=== PATIENT | male | born 1965 | race Caucasian/White ===

== ENCOUNTER → 2019-12-08 09:04 | Outpatient (BNVA) | payer MEDICAID, SELFPAY | PROVIDERS: Family Provider Nurse Practitioner; PCP Nurse Practitioner; Visit Provider Social Worker Clinical | DX: F43.12 Post-traumatic stress disorder, chronic (principal); F20.9 Schizophrenia, unspecified; F60.2 Antisocial personality disorder | CPT/HCPCS: 90834 ==

== ENCOUNTER → 2019-12-26 14:23 | Outpatient (BNVA) | payer MEDICAID, SELFPAY | PROVIDERS: Family Provider Nurse Practitioner; PCP Nurse Practitioner; Visit Provider Nurse Practitioner | DX: R10.84 Generalized abdominal pain (principal); F17.200 Nicotine dependence, unspecified, uncomplicated; R16.0 Hepatomegaly, not elsewhere classified | CPT/HCPCS: 71046; 74018; 81003 ==

== ENCOUNTER → 2019-12-27 11:39 | Outpatient (BNVA) | payer MEDICAID, SELFPAY | PROVIDERS: Family Provider Nurse Practitioner; PCP Nurse Practitioner; Visit Provider Social Worker Clinical | DX: F43.12 Post-traumatic stress disorder, chronic (principal); F60.2 Antisocial personality disorder; F20.9 Schizophrenia, unspecified | CPT/HCPCS: 90834 ==

== ENCOUNTER → 2020-01-03 13:29 | Outpatient (BNVA) | payer MEDICAID, SELFPAY | PROVIDERS: Family Provider Nurse Practitioner; PCP Nurse Practitioner; Visit Provider Nurse Practitioner | DX: J43.9 Emphysema, unspecified (principal); R16.0 Hepatomegaly, not elsewhere classified; R10.84 Generalized abdominal pain; F17.200 Nicotine dependence, unspecified, uncomplicated | CPT/HCPCS: 71046; 74018 ==

== ENCOUNTER → 2020-01-16 10:37 | Outpatient (BNVA) | payer MEDICAID, SELFPAY | PROVIDERS: Family Provider Nurse Practitioner; PCP Nurse Practitioner; Visit Provider Nurse Practitioner Psychiatric/Mental Health | DX: F20.0 Paranoid schizophrenia (principal); F43.12 Post-traumatic stress disorder, chronic; F60.2 Antisocial personality disorder; F17.210 Nicotine dependence, cigarettes, uncomplicated; Z03.89 Encounter for observation for other suspected diseases and conditions ruled out | CPT/HCPCS: 99214 ==

== ENCOUNTER → 2020-01-18 10:23 | Outpatient (BNVA) | payer MEDICAID, SELFPAY | PROVIDERS: Family Provider Nurse Practitioner; PCP Nurse Practitioner; Visit Provider Social Worker Clinical | DX: F60.2 Antisocial personality disorder (principal); F43.12 Post-traumatic stress disorder, chronic; F20.0 Paranoid schizophrenia | CPT/HCPCS: 90832; 80053; 80061; 81003; 83036; 85025 ==

== ENCOUNTER → 2020-02-08 10:06 | Outpatient (BNVA) | payer MEDICAID, SELFPAY | PROVIDERS: Family Provider Nurse Practitioner; PCP Nurse Practitioner; Visit Provider Social Worker Clinical | DX: F43.12 Post-traumatic stress disorder, chronic (principal); F60.2 Antisocial personality disorder; F20.0 Paranoid schizophrenia | CPT/HCPCS: 90834 ==

== ENCOUNTER 2020-02-19 08:11 | Outpatient (CLI) | payer MEDICAID, SELFPAY ==
--- NOTE | 2020-02-19 | US_ITS ---
WS: [id number] RIGHT UPPER QUADRANT ULTRASOUND HISTORY: ELEVATED LIVER ENZYMES COMPARISON: None available. Liver: 17.4 cm in length. Normal size and echogenicity with no intrahepatic dilatation. No mass. Gallbladder: Normally distended gallbladder with no stones or wall thickening. CBD: 0.4 cm Pancreas: Poorly visualized. Right kidney: 10.1 cm in length. Normal echogenicity with no mass or hydronephrosis. Aorta and IVC: Unremarkable. No ascites. US/US liver [id number] IMPRESSION: 1. Normal liver. 2. No bile duct dilatation. 3. Negative gallbladder.
== END 2020-02-19 08:12 | disposition home or self-care (01) ==
LOC: RAD 08:21 → RADWPI 08:34
PROVIDERS: Family Provider Nurse Practitioner; PCP Nurse Practitioner; Visit Provider Nurse Practitioner
DX: R74.8 Abnormal levels of other serum enzymes (principal)
CPT/HCPCS: 76705

== ENCOUNTER → 2020-02-28 07:27 | Outpatient (BNVA) | payer MEDICAID, SELFPAY | PROVIDERS: Family Provider Nurse Practitioner; PCP Nurse Practitioner; Visit Provider Nurse Practitioner Psychiatric/Mental Health | DX: F20.0 Paranoid schizophrenia (principal); F43.12 Post-traumatic stress disorder, chronic; F60.2 Antisocial personality disorder; F17.210 Nicotine dependence, cigarettes, uncomplicated | CPT/HCPCS: 99214 ==

== ENCOUNTER → 2020-03-04 07:36 | Outpatient (BNVA) | payer MEDICAID, SELFPAY | PROVIDERS: Family Provider Nurse Practitioner; PCP Nurse Practitioner; Visit Provider Social Worker Clinical | DX: F60.2 Antisocial personality disorder (principal); F43.12 Post-traumatic stress disorder, chronic; F20.0 Paranoid schizophrenia | CPT/HCPCS: 90834 ==

== ENCOUNTER → 2020-03-26 08:02 | Outpatient (BNVA) | payer MEDICAID, SELFPAY | PROVIDERS: Family Provider Nurse Practitioner; PCP Nurse Practitioner; Visit Provider Social Worker Clinical | DX: F60.2 Antisocial personality disorder (principal); F43.12 Post-traumatic stress disorder, chronic; F20.0 Paranoid schizophrenia | CPT/HCPCS: 90832 ==

== ENCOUNTER → 2020-03-27 08:12 | Outpatient (BNVA) | payer MEDICAID, SELFPAY | PROVIDERS: Family Provider Nurse Practitioner; PCP Nurse Practitioner; Visit Provider Nurse Practitioner Psychiatric/Mental Health | DX: F20.0 Paranoid schizophrenia (principal); F43.12 Post-traumatic stress disorder, chronic; F60.2 Antisocial personality disorder; F17.210 Nicotine dependence, cigarettes, uncomplicated | CPT/HCPCS: 99214 ==

== ENCOUNTER → 2020-04-04 08:17 | Outpatient (BNVA) | payer MEDICAID, SELFPAY | PROVIDERS: Family Provider Nurse Practitioner; PCP Nurse Practitioner; Visit Provider Social Worker Clinical | DX: F60.2 Antisocial personality disorder (principal); F43.12 Post-traumatic stress disorder, chronic; F20.0 Paranoid schizophrenia | CPT/HCPCS: 90832 ==

== ENCOUNTER → 2020-04-19 12:41 | Outpatient (BNVA) | payer MEDICAID, SELFPAY | PROVIDERS: Family Provider Nurse Practitioner; PCP Nurse Practitioner; Visit Provider Nurse Practitioner Family | DX: G89.29 Other chronic pain (principal); R10.13 Epigastric pain | CPT/HCPCS: 87338 ==

== ENCOUNTER → 2020-04-23 08:24 | Outpatient (BNVA) | payer MEDICAID, SELFPAY | PROVIDERS: Family Provider Nurse Practitioner; PCP Nurse Practitioner; Visit Provider Social Worker Clinical | DX: F60.2 Antisocial personality disorder (principal); F43.12 Post-traumatic stress disorder, chronic; F20.0 Paranoid schizophrenia | CPT/HCPCS: 90832; 90834 ==

== ENCOUNTER 2020-04-24 12:57 | Outpatient (CLI) | payer MEDICAID, SELFPAY ==
[2020-04-24] MEDS: iohexol 300 mg/mL 50 mL Btl PO (13:41)
--- NOTE | 2020-04-24 14:30 | CT_ITS ---
WS: [id number] CT ABDOMEN PELVIS TECHNIQUE: Contrast-enhanced CT of the abdomen and pelvis with coronal and sagittal reformatted image s. CLINICAL INFORMATION: chronic epigastric pain, ultrasound was WNL COMPARISON: None. DLP: 1047.[address] scans at [facility] use at least one of these dose optimization techniques: automat ed exposure control; mA and/or kV adjustment per patient size (includes targeted exams where dose is matched to clinical indication); or iterative reconstruction. FINDINGS:Diffuse thickening and inflammatory stranding involving the proximal sigmoid colon in the lo wer midabdomen. Adjacent induration and inflammatory stranding. Findings are consistent with acute di verticulitis. No evidence of drainable abscess or fluid collection. Mild diffuse fatty infiltration of the liver. Normal portal vein and splenic vein. Normal gallbladder . Adrenal glands are normal. Small right adrenal adenoma measuring 9 mm. Left adrenal gland is normal . Normal renal parenchymal enhancement. Normal spleen. Normal GE junction. Lung bases are well aerate d. Mild fatty atrophy of the pancreas. Normal caliber abdominal aorta. No periaortic or retroperitoneal lymphadenopathy. Normal appendix. No free fluid in the pelvis. No inguinal lymphadenopathy. CT/CT abdomen pelvis w con* [id number] IMPRESSION: 1. Diffuse thickening of the proximal sigmoid colon with inflammatory strandin g consistent with acute diverticulitis. No drainable abscess or fluid collectio n. Recommend follow-up to resolution. 2. 9 mm right adrenal adenoma. 3. Normal caliber abdominal aorta. 4. Incidental fat-containing umbilical hernia. 5. No other significant findings.
[2020-04-24] MEDS: iohexol 300 mg/mL 100 mL Btl IV (14:47)
== END 2020-04-24 12:58 | disposition home or self-care (01) ==
LOC: RADWPI 13:01
PROVIDERS: Family Provider Nurse Practitioner; PCP Nurse Practitioner; Visit Provider Nurse Practitioner Family
DX: R10.13 Epigastric pain (principal); G89.29 Other chronic pain; D35.01 Benign neoplasm of right adrenal gland; K42.9 Umbilical hernia without obstruction or gangrene
CPT/HCPCS: 74177; Q9967

== ENCOUNTER → 2020-04-25 07:32 | Outpatient (BNVA) | payer MEDICAID, SELFPAY | PROVIDERS: Family Provider Nurse Practitioner; PCP Nurse Practitioner; Visit Provider Nurse Practitioner Psychiatric/Mental Health | DX: F20.0 Paranoid schizophrenia (principal); F43.12 Post-traumatic stress disorder, chronic; F60.2 Antisocial personality disorder; F17.210 Nicotine dependence, cigarettes, uncomplicated | CPT/HCPCS: 99214 ==

== ENCOUNTER → 2020-05-09 08:12 | Outpatient (BNVA) | payer MEDICAID, SELFPAY | PROVIDERS: Family Provider Nurse Practitioner; PCP Nurse Practitioner; Visit Provider Social Worker Clinical | DX: F60.2 Antisocial personality disorder (principal); F20.0 Paranoid schizophrenia; F43.12 Post-traumatic stress disorder, chronic | CPT/HCPCS: 90832 ==

== ENCOUNTER → 2020-05-27 08:12 | Outpatient (BNVA) | payer MEDICAID, SELFPAY | PROVIDERS: Family Provider Nurse Practitioner; PCP Nurse Practitioner; Visit Provider Social Worker Clinical | DX: F60.2 Antisocial personality disorder (principal); F43.12 Post-traumatic stress disorder, chronic; F20.0 Paranoid schizophrenia | CPT/HCPCS: 90834 ==

== ENCOUNTER → 2020-05-30 07:49 | Outpatient (BNVA) | payer MEDICAID, SELFPAY | PROVIDERS: Family Provider Nurse Practitioner; PCP Nurse Practitioner; Visit Provider Nurse Practitioner Psychiatric/Mental Health | DX: F20.0 Paranoid schizophrenia (principal); F43.12 Post-traumatic stress disorder, chronic; F60.2 Antisocial personality disorder; F17.210 Nicotine dependence, cigarettes, uncomplicated | CPT/HCPCS: 99214 ==

== ENCOUNTER → 2020-06-13 08:01 | Outpatient (BNVA) | payer MEDICAID, SELFPAY | PROVIDERS: Family Provider Nurse Practitioner; PCP Nurse Practitioner; Visit Provider Social Worker Clinical | DX: F60.2 Antisocial personality disorder (principal); F43.12 Post-traumatic stress disorder, chronic; F20.0 Paranoid schizophrenia | CPT/HCPCS: 90832 ==

== ENCOUNTER → 2020-06-26 09:42 | Outpatient (BNVA) | payer MEDICAID, SELFPAY | PROVIDERS: Family Provider Nurse Practitioner; PCP Nurse Practitioner; Visit Provider Social Worker Clinical | DX: F60.2 Antisocial personality disorder (principal); F43.12 Post-traumatic stress disorder, chronic; F20.0 Paranoid schizophrenia | CPT/HCPCS: 90834 ==

== ENCOUNTER → 2020-06-27 08:30 | Outpatient (BNVA) | payer MEDICAID, SELFPAY | PROVIDERS: Family Provider Nurse Practitioner; PCP Nurse Practitioner; Visit Provider Nurse Practitioner Psychiatric/Mental Health | DX: F20.0 Paranoid schizophrenia (principal); F43.12 Post-traumatic stress disorder, chronic; F60.2 Antisocial personality disorder; F17.210 Nicotine dependence, cigarettes, uncomplicated | CPT/HCPCS: 99214 ==

== ENCOUNTER → 2020-07-08 10:08 | Outpatient (BNVA) | payer MEDICAID, SELFPAY | PROVIDERS: Family Provider Nurse Practitioner; PCP Nurse Practitioner; Visit Provider Social Worker Clinical | DX: F43.12 Post-traumatic stress disorder, chronic (principal); F20.0 Paranoid schizophrenia; F60.2 Antisocial personality disorder | CPT/HCPCS: 90832 ==

== ENCOUNTER → 2020-07-24 10:10 | Outpatient (BNVA) | payer MEDICAID, SELFPAY | PROVIDERS: Family Provider Nurse Practitioner; PCP Nurse Practitioner; Visit Provider Social Worker Clinical | DX: F43.12 Post-traumatic stress disorder, chronic (principal); F60.2 Antisocial personality disorder | CPT/HCPCS: 90832 ==

== ENCOUNTER → 2020-08-08 08:51 | Outpatient (BNVA) | payer MEDICAID, SELFPAY | PROVIDERS: Family Provider Nurse Practitioner; PCP Nurse Practitioner; Visit Provider Social Worker Clinical | DX: F20.0 Paranoid schizophrenia (principal); F43.12 Post-traumatic stress disorder, chronic; F60.2 Antisocial personality disorder | CPT/HCPCS: 90832 ==

== ENCOUNTER → 2020-08-20 08:54 | Outpatient (BNVA) | payer MEDICAID, SELFPAY | PROVIDERS: Family Provider Nurse Practitioner; PCP Nurse Practitioner; Visit Provider Social Worker Clinical | DX: F60.2 Antisocial personality disorder (principal); F43.12 Post-traumatic stress disorder, chronic; F20.0 Paranoid schizophrenia | CPT/HCPCS: 90834 ==

== ENCOUNTER → 2020-11-29 08:11 | Outpatient (BNVA) | payer MEDICAID, SELFPAY | PROVIDERS: Family Provider Nurse Practitioner; PCP Nurse Practitioner; Visit Provider Social Worker Clinical | DX: F43.12 Post-traumatic stress disorder, chronic (principal); F20.0 Paranoid schizophrenia; F60.2 Antisocial personality disorder | CPT/HCPCS: 90834 ==

== ENCOUNTER → 2020-12-09 08:10 | Outpatient (BNVA) | payer MEDICAID, SELFPAY | PROVIDERS: Family Provider Nurse Practitioner; PCP Nurse Practitioner; Visit Provider Nurse Practitioner Psychiatric/Mental Health | DX: F20.0 Paranoid schizophrenia (principal); F43.12 Post-traumatic stress disorder, chronic; F60.2 Antisocial personality disorder; F17.210 Nicotine dependence, cigarettes, uncomplicated | CPT/HCPCS: 99214 ==

== ENCOUNTER → 2021-01-22 08:52 | Outpatient (BNVA) | payer MEDICAID, SELFPAY | PROVIDERS: Family Provider Nurse Practitioner; PCP Nurse Practitioner; Visit Provider Social Worker Clinical | DX: F43.12 Post-traumatic stress disorder, chronic (principal); F20.9 Schizophrenia, unspecified | CPT/HCPCS: 90791 ==

== ENCOUNTER → 2021-03-03 07:36 | Outpatient (BNVA) | payer MEDICAID, SELFPAY | PROVIDERS: Family Provider Nurse Practitioner; PCP Nurse Practitioner; Visit Provider Nurse Practitioner Psychiatric/Mental Health | DX: F20.0 Paranoid schizophrenia (principal); F43.12 Post-traumatic stress disorder, chronic; F60.2 Antisocial personality disorder; F17.210 Nicotine dependence, cigarettes, uncomplicated; Z79.899 Other long term (current) drug therapy | CPT/HCPCS: 99214 ==

== ENCOUNTER → 2021-03-14 08:21 | Outpatient (BNVA) | payer MEDICAID, SELFPAY | PROVIDERS: Family Provider Nurse Practitioner; PCP Nurse Practitioner; Visit Provider Social Worker Clinical | DX: F60.2 Antisocial personality disorder (principal); F43.12 Post-traumatic stress disorder, chronic; F20.0 Paranoid schizophrenia | CPT/HCPCS: 90834 ==

== ENCOUNTER → 2021-04-01 07:23 | Outpatient (BNVA) | payer MEDICAID, SELFPAY | PROVIDERS: Family Provider Nurse Practitioner; PCP Nurse Practitioner; Visit Provider Nurse Practitioner Psychiatric/Mental Health | DX: F20.0 Paranoid schizophrenia (principal); F43.12 Post-traumatic stress disorder, chronic; F60.2 Antisocial personality disorder; F17.210 Nicotine dependence, cigarettes, uncomplicated | CPT/HCPCS: 99214 ==

== ENCOUNTER → 2021-04-04 08:28 | Outpatient (BNVA) | payer MEDICAID, SELFPAY | PROVIDERS: Family Provider Nurse Practitioner; PCP Nurse Practitioner; Visit Provider Social Worker Clinical | DX: F60.2 Antisocial personality disorder (principal); F43.12 Post-traumatic stress disorder, chronic; F20.0 Paranoid schizophrenia | CPT/HCPCS: 90834 ==

== ENCOUNTER → 2021-04-28 08:12 | Outpatient (BNVA) | payer MEDICAID, SELFPAY | PROVIDERS: Family Provider Nurse Practitioner; PCP Nurse Practitioner; Visit Provider Social Worker Clinical | DX: F60.2 Antisocial personality disorder; F43.12 Post-traumatic stress disorder, chronic; F20.5 Residual schizophrenia | CPT/HCPCS: 90834 ==

== ENCOUNTER → 2021-05-07 07:34 | Outpatient (BNVA) | payer MEDICAID, SELFPAY | PROVIDERS: Family Provider Nurse Practitioner; PCP Nurse Practitioner; Visit Provider Nurse Practitioner Psychiatric/Mental Health | DX: F20.0 Paranoid schizophrenia (principal); F43.12 Post-traumatic stress disorder, chronic; F60.2 Antisocial personality disorder; F17.210 Nicotine dependence, cigarettes, uncomplicated | CPT/HCPCS: 99214 ==

== ENCOUNTER → 2021-05-15 10:12 | Outpatient (BNVA) | payer MEDICAID, SELFPAY | PROVIDERS: Family Provider Nurse Practitioner; PCP Nurse Practitioner; Visit Provider Social Worker Clinical | DX: F60.2 Antisocial personality disorder (principal); F43.12 Post-traumatic stress disorder, chronic; F20.0 Paranoid schizophrenia | CPT/HCPCS: 90834 ==

== ENCOUNTER → 2021-06-12 11:47 | Outpatient (BNVA) | payer MEDICAID, SELFPAY | PROVIDERS: Family Provider Nurse Practitioner; PCP Nurse Practitioner; Visit Provider Social Worker Clinical | DX: F60.2 Antisocial personality disorder (principal); F43.12 Post-traumatic stress disorder, chronic; F20.0 Paranoid schizophrenia | CPT/HCPCS: 90834 ==

== ENCOUNTER → 2021-06-18 07:08 | Outpatient (BNVA) | payer MEDICAID, SELFPAY | PROVIDERS: Family Provider Nurse Practitioner; PCP Nurse Practitioner; Visit Provider Nurse Practitioner Psychiatric/Mental Health | DX: F20.0 Paranoid schizophrenia (principal); F43.12 Post-traumatic stress disorder, chronic; F60.2 Antisocial personality disorder; F17.210 Nicotine dependence, cigarettes, uncomplicated | CPT/HCPCS: 99214 ==

== ENCOUNTER → 2021-07-10 10:50 | Outpatient (BNVA) | payer MEDICAID, SELFPAY | PROVIDERS: PCP Nurse Practitioner; Visit Provider Social Worker Clinical | DX: F60.2 Antisocial personality disorder (principal); F43.12 Post-traumatic stress disorder, chronic; F20.0 Paranoid schizophrenia | CPT/HCPCS: 90834 ==

== ENCOUNTER 2021-07-22 07:59 | Outpatient (CLI) | payer MEDICAID, SELFPAY ==
--- NOTE | 2021-07-22 08:08 | CT_ITS ---
WS: [id number] CT ABDOMEN AND PELVIS WITH CONTRAST HISTORY: DIVERTICULITIS TECHNIQUE: Imaging performed of the abdomen and pelvis with IV contrast. Single phase imaging of the abdomen. Coronal and sagittal reformats are submitted. All CT scans at [facility] use at [facility] st one of these dose optimization techniques: automated exposure control; mA and/or kV adjustment per patient size (includes targeted exams where dose is matched to clinical indication); or iterative re construction. IV CONTRAST: Omnipaque 300; 95 mL IV. Oral contrast: Yes. DLP: 1085.32 mGycm COMPARISON: 04/24/2020 Lower thorax: Mild emphysematous changes at the lung bases. Heart is normal size. Small hiatal hernia . Liver/biliary system: 2.1 cm ovoid cyst in the posterior LEFT lobe of the liver is stable. There are a few additional hypodensities which are too small to characterize. No bile duct dilatation. Gallbladder: Normal. No gallstones or wall thickening. No pericholecystic fluid. Pancreas: Normal size pancreas and pancreatic duct. No adjacent inflammation. Spleen: Normal with granulomata. Adrenal glands: Stable 10 mm low-attenuation nodule in the RIGHT adrenal gland. Likely an adenoma. LE FT adrenal gland is negative. Right kidney: Normal. Left kidney: Normal. Aorta: Normal. Lymphadenopathy: None. Free fluid: None. GI tract: The appendix is normal. There is some very mild wall thickening and pericolonic inflammatio n in the region of the cecum. There is no obstruction and the terminal ileum is normal. Moderate cons tipation throughout the colon. Colon is tortuous and there is wall thickening and narrowing of the gardenia men in the region of the sigmoid without adjacent inflammation. There are numerous diverticula. Abdominal wall: Unremarkable abdominal wall. No hernia. Pelvis: No free fluid or adenopathy within the pelvis. Bones: Mild lumbar spondylosis. No fractures. CT/CT abdomen pelvis w con* [id number] IMPRESSION: 1. Very mild pericolonic inflammatory changes in the region of the cecum. No o bstruction and the appendix is normal. May be postinflammatory. Early neoplasm is also not excluded. Recommend colonoscopy. 2. Circumferential wall thickening with numerous diverticula throughout the si gmoid colon. No acute diverticulitis. This area should be further evaluated by colonoscopy also. 3. Stable hepatic cysts and RIGHT adrenal nodule which is likely an adenoma.
[2021-07-22] MEDS: iohexol 300 mg/mL 50 mL Btl PO (09:08)
[2021-07-22] MEDS: iohexol 300 mg/mL 100 mL Btl IV (09:41)
== END 2021-07-22 08:00 | disposition home or self-care (01) ==
PROVIDERS: PCP Nurse Practitioner; Visit Provider Surgery
DX: K57.92 Diverticulitis of intestine, part unspecified, without perforation or abscess without bleeding (principal); K76.89 Other specified diseases of liver; K57.30 Diverticulosis of large intestine without perforation or abscess without bleeding
CPT/HCPCS: 74177; Q9967

== ENCOUNTER → 2021-08-11 11:32 | Outpatient (BNVA) | payer MEDICAID, SELFPAY | PROVIDERS: PCP Nurse Practitioner; Visit Provider Social Worker Clinical | DX: F60.2 Antisocial personality disorder (principal); F43.12 Post-traumatic stress disorder, chronic; F20.0 Paranoid schizophrenia | CPT/HCPCS: 90834; 80053; 80061; 83036 ==

== ENCOUNTER → 2021-08-26 11:20 | Outpatient (BNVA) | payer MEDICAID, SELFPAY | PROVIDERS: PCP Nurse Practitioner; Visit Provider Social Worker Clinical | DX: F60.2 Antisocial personality disorder (principal); F20.0 Paranoid schizophrenia; F43.12 Post-traumatic stress disorder, chronic | CPT/HCPCS: 90834 ==

== ENCOUNTER → 2021-09-12 09:53 | Outpatient (BNVA) | payer MEDICAID, SELFPAY | PROVIDERS: PCP Nurse Practitioner; Visit Provider Social Worker Clinical | DX: F60.2 Antisocial personality disorder (principal); F43.12 Post-traumatic stress disorder, chronic; F20.0 Paranoid schizophrenia; F42.9 Obsessive-compulsive disorder, unspecified | CPT/HCPCS: 90834 ==

== ENCOUNTER → 2021-09-29 10:16 | Outpatient (BNVA) | payer MEDICAID, SELFPAY | PROVIDERS: PCP Nurse Practitioner; Visit Provider Social Worker Clinical | DX: F60.2 Antisocial personality disorder (principal); F43.12 Post-traumatic stress disorder, chronic; F20.0 Paranoid schizophrenia | CPT/HCPCS: 90834 ==

== ENCOUNTER → 2021-10-31 07:57 | Outpatient (BNVA) | payer MEDICAID, SELFPAY | PROVIDERS: PCP Nurse Practitioner; Visit Provider Social Worker Clinical | DX: F60.2 Antisocial personality disorder (principal); F43.12 Post-traumatic stress disorder, chronic; F20.0 Paranoid schizophrenia | CPT/HCPCS: 90834 ==

== ENCOUNTER → 2021-11-19 10:42 | Outpatient (BNVA) | payer MEDICAID, SELFPAY | PROVIDERS: PCP Nurse Practitioner; Visit Provider Social Worker Clinical | DX: F60.2 Antisocial personality disorder (principal); F43.12 Post-traumatic stress disorder, chronic; F20.0 Paranoid schizophrenia | CPT/HCPCS: 90834 ==

== ENCOUNTER → 2021-12-04 10:59 | Outpatient (BNVA) | payer MEDICAID, SELFPAY | PROVIDERS: PCP Nurse Practitioner; Visit Provider Social Worker Clinical | DX: F60.3 Borderline personality disorder (principal); F43.12 Post-traumatic stress disorder, chronic; F20.0 Paranoid schizophrenia | CPT/HCPCS: 90834 ==

== ENCOUNTER → 2021-12-26 07:40 | Outpatient (BNVA) | payer MEDICAID, SELFPAY | PROVIDERS: PCP Nurse Practitioner; Visit Provider Nurse Practitioner Psychiatric/Mental Health | DX: F20.0 Paranoid schizophrenia (principal); F43.12 Post-traumatic stress disorder, chronic; F60.2 Antisocial personality disorder; F17.210 Nicotine dependence, cigarettes, uncomplicated | CPT/HCPCS: 99214 ==

== ENCOUNTER → 2022-01-01 10:48 | Outpatient (BNVA) | payer MEDICAID, SELFPAY | PROVIDERS: PCP Nurse Practitioner; Visit Provider Social Worker Clinical | DX: F60.2 Antisocial personality disorder (principal); F43.12 Post-traumatic stress disorder, chronic; F20.0 Paranoid schizophrenia | CPT/HCPCS: 90834 ==

== ENCOUNTER → 2022-01-21 10:05 | Outpatient (BNVA) | payer MEDICAID, SELFPAY | PROVIDERS: PCP Nurse Practitioner; Visit Provider Social Worker Clinical | DX: F60.2 Antisocial personality disorder (principal); F43.12 Post-traumatic stress disorder, chronic; F20.0 Paranoid schizophrenia | CPT/HCPCS: 90834 ==

== ENCOUNTER 2022-03-05 07:58 | Day surgery (SDC) | payer MEDICAID, SELFPAY ==
[2022-03-03 09:14] VITALS: BMI 24.3
[2022-03-05 08:17] VITALS: BP 114/79; PULSE 60; RESP 17; TEMP 36.3; O2SAT 96
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
[2022-03-05] MEDS: sodium chloride 0.9% 1,000 ML 30 ML IV (08:28)
--- NOTE | 2022-03-05 09:30 | ANES.PREANE2 ---
Pre-Anesthetic Assessment Height/Weight: Height 1.75 m Weight 74.843 kg Temp Pulse Resp BP Pulse Ox 97.3 F L 60 17 114/79 96 03/05/22 08:17 03/05/22 08:17 03/05/22 08:17 03/05/22 08:17 03/05/22 08:17 Preop Diagnosis: Epigastric pain Operation Date: 03/05/22 09:30 Proposed Procedures p EGD [id number]/r10.13/r10.9(Not Applicable) - Artie Benites MD s Colonoscopy(Not Applicable) - Artie Benites MD Familial anesthetic complications: None Was Beta Lizzie taken within 24 hours: Yes Was Clonidine taken within 24 hours: N/A Last intake: Intake Last Liquid Date 03/04/22 Last Liquid Time 20:00 Last Solid Date 03/03/22 Last Solid Time 19:00 Social Tobacco and No alcohol Exam alert, oriented x 3 and regular rate & rhythm Airway Submandibular: within normal limits Cervical ROM: within normal limits Mallampati: Class II Dentition: full CV/HEM Hypertension Neuropsych Anxiety and Depression Schizo Anesthetic Plan ASA status: 2 Anesthesia: MAC Medications/Allergies Home Medications Medication Instructions Recorded Confirmed Last Taken Type benztropine 0.5 mg tablet 0.5 mg PO TID #90 tab 12/26/21 03/05/22 03/04/22 Rx clonazepam 0.5 mg tablet (Klonopin) 0.5 mg PO DAILY PRN #30 tab 12/26/21 03/05/22 03/04/22 Rx haloperidol 5 mg tablet 5 mg PO BID PRN #90 tab 12/26/21 03/05/22 03/04/22 Rx propranolol 20 mg tablet 20 mg PO BID #60 tab 12/26/21 03/05/22 03/04/22 Rx quetiapine 400 mg tablet (Seroquel) 400 mg PO BID #60 tab 12/26/21 03/05/22 03/04/22 Rx Allergies Allergy/AdvReac Type Severity Reaction Status Date / Time codeine AdvReac Ringing in Verified 03/05/22 08:22 ears Current Medications Generic Name Dose Route Start Last Admin Trade Name Freq PRN Reason Stop Dose Admin Sodium Chloride 1,000 mls @ 30 mls/hr 03/05/22 08:15 03/05/22 08:28 Sodium Chloride 0.9% IV 03/06/22 08:14 30 mls/hr .Q24H ORQUIDEA Administration PFSH Anesthesia Medical History Antisocial personality disorder Chronic post-traumatic stress disorder Current smoker Depression Neuropathy Hands and arms Nicotine dependence, cigarettes, uncomplicated Obstructive sleep apnea Paranoid schizophrenia Psychiatric care Surgical History History of ankle surgery left ankle ORIF History of kidney surgery left removed age [address] contrast Family History Mother Depression Heart disease CAD (coronary artery disease) Father Cancer Prostate Social History Smoking and tobacco status: current every day smoker cigarettes Packs smoked per day: 1 Second hand smoke exposure: No Smoking risk assessment/counseling performed?: Yes Alcohol intake: unknown Desire information about alcohol rehabilitation?: No Counseling given: No Desire information about substance/drug rehabilitation?: No Counseling given: No Caregiver/support person: No Lives independently: Yes Household members: spouse Housing: House Marital status: Current occupational status: unemployed History of recent travel: No Current gender identity: Male Data Anesthesia Cardiac Studies: No Data to Display
[2022-03-05 10:01] VITALS: BP 105/62; PULSE 72; RESP 18; TEMP 36.4; O2SAT 93
[2022-03-05 10:12] VITALS: BP 99/56; PULSE 71; RESP 18; TEMP 36.7; O2SAT 98
--- NOTE | 2022-03-05 14:51 | ANE.PACU2 ---
Inpatient post-anesthesia follow up: Airway intact: Yes Vital signs: Temperature 98.1 F Pulse Rate 71 Respiratory Rate 18 Blood Pressure 99/56 Pulse Oximetry 98 Oxygen Delivery Me thod Room Air Oxygen Flow Rate Fraction of Inspir ed Oxygen Hydration adequate: Yes Nausea and vomiting: No Pain level: 1 Mental status: Baseline
== END 2022-03-05 10:21 | disposition home or self-care (01) ==
PROVIDERS: PCP Nurse Practitioner; Visit Provider Surgery
PROC: 0DJ08ZZ Inspection of Upper Intestinal Tract, Via Natural or Artificial Opening Endoscopic (ICD-10-PCS; CPT 43235; principal; 2022-03-05 09:30)
PROC: 0DJD8ZZ Inspection of Lower Intestinal Tract, Via Natural or Artificial Opening Endoscopic (ICD-10-PCS; CPT 45378; 2022-03-05 09:30)
DX: R10.13 Epigastric pain (principal); K29.80 Duodenitis without bleeding; K29.70 Gastritis, unspecified, without bleeding; F17.210 Nicotine dependence, cigarettes, uncomplicated; F32.9 Major depressive disorder, single episode, unspecified; G47.33 Obstructive sleep apnea (adult) (pediatric); Z82.49 Family history of ischemic heart disease and other diseases of the circulatory system; Z83.3 Family history of diabetes mellitus; I10 Essential (primary) hypertension
CPT/HCPCS: 43239; 45378; 88305; 88342; J2704; J7030

== ENCOUNTER → 2022-03-06 09:50 | Outpatient (BNVA) | payer MEDICAID, SELFPAY | PROVIDERS: PCP Nurse Practitioner; Visit Provider Social Worker Clinical | DX: F60.2 Antisocial personality disorder (principal); F20.0 Paranoid schizophrenia; F43.12 Post-traumatic stress disorder, chronic | CPT/HCPCS: 90834 ==

== ENCOUNTER → 2022-03-18 09:47 | Outpatient (BNVA) | payer MEDICAID, SELFPAY | PROVIDERS: PCP Nurse Practitioner; Visit Provider Surgery | DX: Z09 Encounter for follow-up examination after completed treatment for conditions other than malignant neoplasm (principal); Z86.010 Personal history of colon polyps; K29.90 Gastroduodenitis, unspecified, without bleeding; R10.13 Epigastric pain | CPT/HCPCS: 99213 ==

== ENCOUNTER → 2022-03-20 07:00 | Outpatient (BNVA) | payer MEDICAID, SELFPAY | PROVIDERS: PCP Nurse Practitioner; Visit Provider Nurse Practitioner Psychiatric/Mental Health | DX: F20.0 Paranoid schizophrenia (principal); F43.12 Post-traumatic stress disorder, chronic; F60.2 Antisocial personality disorder; F17.210 Nicotine dependence, cigarettes, uncomplicated | CPT/HCPCS: 99214 ==

== ENCOUNTER → 2022-04-03 09:54 | Outpatient (BNVA) | payer MEDICAID, SELFPAY | PROVIDERS: PCP Nurse Practitioner; Visit Provider Social Worker Clinical | DX: F20.0 Paranoid schizophrenia (principal); F43.12 Post-traumatic stress disorder, chronic; F60.2 Antisocial personality disorder | CPT/HCPCS: 90791 ==

== ENCOUNTER → 2022-04-06 08:45 | Outpatient (BNVA) | payer MEDICAID, SELFPAY | PROVIDERS: PCP Nurse Practitioner; Visit Provider Social Worker Clinical | DX: F60.2 Antisocial personality disorder (principal); F43.12 Post-traumatic stress disorder, chronic; F20.0 Paranoid schizophrenia | CPT/HCPCS: 90834 ==

== ENCOUNTER → 2022-05-14 11:20 | Outpatient (BNVA) | payer MEDICAID, SELFPAY | PROVIDERS: PCP Nurse Practitioner; Visit Provider Nurse Practitioner Psychiatric/Mental Health | DX: F20.0 Paranoid schizophrenia (principal); F43.12 Post-traumatic stress disorder, chronic; F60.2 Antisocial personality disorder; F17.210 Nicotine dependence, cigarettes, uncomplicated | CPT/HCPCS: 99214 ==

== ENCOUNTER → 2022-10-15 11:53 | Outpatient (BNVA) | payer MEDICAID, SELFPAY | PROVIDERS: PCP Nurse Practitioner; Visit Provider Nurse Practitioner Psychiatric/Mental Health | DX: Z79.899 Other long term (current) drug therapy (principal) | CPT/HCPCS: 80053; 80061; 83036 ==

== ENCOUNTER → 2024-08-09 13:31 | Outpatient (BNVA) | payer OTHER, SELFPAY | PROVIDERS: PCP Nurse Practitioner; Visit Provider Nurse Practitioner Psychiatric/Mental Health | DX: Z79.899 Other long term (current) drug therapy (principal) | CPT/HCPCS: 80053; 80061; 83036 ==

== ENCOUNTER → 2025-09-11 13:44 | Outpatient (BNVA) | payer OTHER, SELFPAY | PROVIDERS: PCP Nurse Practitioner; Visit Provider Nurse Practitioner Psychiatric/Mental Health | DX: Z79.899 Other long term (current) drug therapy (principal) | CPT/HCPCS: 80053; 80061; 83036 ==